=== PATIENT | male | born 1985 | race American Indian/Alaskan Native ===

== ENCOUNTER 2018-11-03 08:58 | Emergency (ER) | payer SELFPAY ==
--- NOTE | 2018-11-03 09:59 | Emergency Department Report ---
ED Back Pain/Injury HPI - General Chief Complaint: Back Pain/Injury Stated Complaint: BACK PAIN Time Seen by Provider: 11/03/18 09:50 Source: patient Limitations: No Limitations - History of Present Illness Initial Comments: Pt is a 33 yo male who presents to the ED with c/o right sided back pain that began a week and a half ago. he states it radiates into his right gluteus and down the posterior portion of his right leg. The patient denies any fall, injury, or trauma. 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 He denies any numbness or weakness. He is ambulatory with no difficulty. He states he has had this same pain previously but did not get seen for it. - Related Data Previous Rx's Medication Instructions Recorded Last Taken Type Cyclobenzaprine HCl [Flexeril 5 MG 5 mg PO QHS PRN #7 tablet 11/03/18 Unknown Rx TAB] Ibuprofen 800 mg PO Q6HR PRN #20 tablet 11/03/18 Unknown Rx Allergies Allergy/AdvReac Type Severity Reaction Status Date / Time No Known Allergies Allergy Unverified 11/03/18 08:59 ED Review of Systems ROS: Stated complaint: BACK PAIN Other details as noted in HPI Comment: All other systems reviewed and negative ED Past Medical Hx - Past Medical History Previous Medical History?: No - Surgical History Past Surgical History?: Yes Additional Surgical History: right thumb surgery - Social History Smoking Status: Current Every Day Smoker Substance Use Type: Alcohol - Medications Home Medications: Home Medications Medication Instructions Recorded Confirmed Last Taken Type Cyclobenzaprine HCl [Flexeril 5 MG 5 mg PO QHS PRN #7 tablet 11/03/18 Unknown Rx TAB] Ibuprofen 800 mg PO Q6HR PRN #20 tablet 11/03/18 Unknown Rx ED Physical Exam - General Limitations: No Limitations General appearance: alert, in no apparent distress - Head Head exam: Present: atraumatic, normocephalic - Eye Eye exam: Present: normal appearance - ENT ENT exam: Present: mucous membranes moist - Respiratory Respiratory exam: Present: normal lung sounds bilaterally. Absent: respiratory distress, wheezes, rales, rhonchi, stridor, chest wall tenderness, accessory muscle use, decreased breath sounds, prolonged expiratory - Cardiovascular Cardiovascular Exam: Present: regular rate, normal rhythm, normal heart sounds. Absent: systolic murmur, rubs, gallop - Back Exam Back exam: Present: normal inspection, full ROM, other (mild TTP of the right lower back over the paraspinal muscles, point TTP of the right gluteus, no midline tenderness of the C-spine, T-spine, L-spine, no step offs, no deformities ). Absent: vertebral tenderness - Neurological Exam Neurological exam: Present: alert, oriented X3, CN II-XII intact, normal gait, other (no focal neuro deficits). Absent: motor sensory deficit - Psychiatric Psychiatric exam: Present: normal affect, normal mood - Skin Skin exam: Present: warm, dry, intact ED Course Vital Signs 11/03/18 09:16 Temperature 97.8 F Pulse Rate 57 L Respiratory 12 Rate Blood Pressure 113/70 O2 Sat by Pulse 98 Oximetry ED Medical Decision Making - Medical Decision Making Pt presents with right lower back pain radiating to the right gluteus and down the posterior right leg. 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 The patient denies any other sx. Exam is normal except for TTP of the right lumbar paraspinal muscles, point tenderness of the right gluteus laura. No neuro deficits. Symptoms and examination are consistent with sciatica. Will give pt anti inflammatory and muscle relaxer. Advised to only take muscle relaxer at night and cannot drive or operate heavy machinery. Advised to follow up with PCP in the next 2-3 days. Advised to follow up with ortho if continued to have back pain. Return to ED if any new or worsening symptoms. Critical care attestation.: If time is entered above; I have spent that time in minutes in the direct care of this critically ill patient, excluding procedure time. ED Disposition Clinical Impression: Muscle strain Sciatica Qualifiers: Laterality: right Qualified Code(s): M54.31 - Sciatica, right side Disposition: TO HOME OR SELFCARE Is pt being admited?: No Does the pt Need Aspirin: No Condition: Stable Instructions: Muscle Strain (ED), Sciatica (ED) Additional Instructions: Follow up with a primary care doctor in the next 2-[address] days[address] Follow up with Dr. Mustafa, orthopedic if continue to have back pain. Only take muscle relaxer at night as needed for muscle spasms. Do not drive while taking muscle relaxer or operate heavy machinery. Return to the emergency room if any new or worsening symptoms. Prescriptions: Cyclobenzaprine HCl [Flexeril 5 MG TAB] 5 mg PO QHS PRN #7 tablet PRN Reason: Muscle Spasm Ibuprofen 800 mg PO Q6HR PRN #20 tablet PRN Reason: Pain, Mild (1-3) Referrals: SHARLENE GANDARA MD [Primary Care Provider] - 2-3 Days IVAN MUSTAFA MD [Staff Physician] - 3-5 Days Forms: Work/School Release Form(ED) Time of Disposition: 09:58 Print Language: HUNGARIAN
== END 2018-11-03 10:11 | disposition home or self-care (01) ==
LOC: ED 08:58
CPT/HCPCS: 99282